=== PATIENT | male | born 1985 | race Caucasian/White ===

== ENCOUNTER 2017-02-18 21:55 | Emergency (ER) | payer OTHER ==
[~2017-02-18] VITALS: Ht 167.6 cm; Wt 68.2 kg
[~2017-02-18 21:55] MED LIST: DOCU-174 PO; NEURONTIN PO; NEXIUM PO; OXYCONTIN PO; XANAX PO; ZOLP10 PO
[2017-02-18 22:07] VITALS: BP 132/68
== END 2017-02-19 00:45 | disposition left against medical advice (07) ==
LOC: EMS 21:56
DX: M54.5 Low back pain (principal); F17.210 Nicotine dependence, cigarettes, uncomplicated; W19.XXXA Unspecified fall, initial encounter; Y93.89 Activity, other specified; Y92.89 Other specified places as the place of occurrence of the external cause; Y99.8 Other external cause status; Z53.21 Procedure and treatment not carried out due to patient leaving prior to being seen by health care provider